=== PATIENT | male | born 1960 | race Caucasian/White ===

== ENCOUNTER → 2017-09-12 | Outpatient (CLI) | payer BC | LOC: M SLEEP HO 15:21 | DX: G47.30 Sleep apnea, unspecified (principal) | CPT/HCPCS: G0399 ==

== ENCOUNTER → 2019-02-05 | Outpatient (CLI) | payer BC ==
[~2019-02-05] MED LIST: AMLO10TA5 PO; COLA50CA3 PO; DIOV320T2 PO; PERC5TAB PO; SPIR25TA2 PO
--- NOTE | 2019-02-06 09:35 | REP ---
MRI RIGHT ANKLE WITHOUT CONTRAST: 02/05/2019. COMPARISON: Soft tissue ultrasound 01/24/2019, x-ray 01/24/2019, outside facility. TECHNIQUE: coronal fat suppressed T2 axial T1 and fat suppressed T2 along with sagittal T1-T2 STIR sequences to the ankle. FINDINGS: The mortise joint appeared symmetric and preserved with symmetric width. No talar dome osteochondral defect evident. No subchondral edema in the tibial plafond. There is some minor increased signal in the medial malleolus suggesting edema / bone bruise but no fracture line. Distal fibula likewise without visible fracture or avulsion on these images. There is some fluid posterior to the tibial plafond. There is no Achilles insertion spur. The Achilles tendon was grossly intact. Size and thickness normal with no intrinsic signal abnormality. There is a plantar calcaneal heal spur. No abnormal thickening of the plantar aponeurosis. The talonavicular and calcaneocuboid joints were normal. There is abnormal thickening and increased linear and curvilinear signal in the posterior tibial tendon just peripheral to the medial malleolus as it courses posterior and inferior to it. I see no definite avulsion. This would be a type 1 injury. There is a small amount of fluid adjacent posterior tibial tendon. The FDL and FHL tendon show normal fluid adjacent and signal abnormality. PB/PL tendons are grossly intact. AT, EDL, and EHL tendons intact. There is subcutaneous edema about the anterior medial aspect of the ankle and along the right posterolateral and posterior aspects of the ankle. Anterior tibiofibular ligament grossly intact. The anterior talofibular ligament shows some strain. The posterior talofibular ligament calcaneofibular ligament shows some so some strain. IMPRESSION: 1. Thickening and some increased signal within the body of the posterior tibialis tendon posterior and inferior to the medial malleolus suggesting a type 1 tear. Small amount of fluid adjacent to it in the FDL. 2. The FHL, PB/PL and anterior tendons along with the Achilles were intact. 3. Some anterior and posterior ligamentous strain about the ankle. 4. Mortise joint grossly intact. No fracture. Subtalar joints intact. 5. Plantar calcaneal heel spur. Electronically Signed by Tin Venegas MD 02/11/2019 02:20 P
== END ==
LOC: M RAD 13:52
PROVIDERS: ATTEND Podiatrist
DX: M76.821 Posterior tibial tendinitis, right leg (principal); M66.371 Spontaneous rupture of flexor tendons, right ankle and foot

== ENCOUNTER → 2019-04-25 | Outpatient (CLI) | payer BC ==
--- NOTE | 2019-04-30 14:42 | SLEEPHOME ---
DATE OF PROCEDURE: 04/25/2019 ORDERED BY: Karen Persaud NP Diagnostic home sleep testing was performed due to concern for the obstructive sleep apnea syndrome in this patient with snoring and nonrestorative sleep. For testing, a nocturnal T3 respiratory monitoring device was used. Continuous record was made of pulse, oxygen saturation, airflow, chest and abdominal strain and body position. 11 hours and 59 minutes of data were reviewed. There were 5 hours and 50 minutes marked as time in bed. During the interval marked time in bed, there were 241 respiratory events identified of 10 seconds in duration or greater for a respiratory event index of 41.2. The events were primarily obstructive. Baseline pulse rate 64, pulse rate ranged 50-90. Baseline saturation 94%. Saturations fell as low as 85%. Testing was performed in both the supine and nonsupine positions. IMPRESSION: Abnormal home sleep testing with repetitive respiratory events and oxygen desaturations to 85% with a respiratory event index of 41.2 is consistent with the obstructive sleep apnea syndrome. RECOMMENDATIONS: The patient should be encouraged to undergo formal sleep evaluation.
== END ==
LOC: M SLEEP HO 12:05
PROVIDERS: ATTEND Nurse Practitioner Adult Health
DX: G47.30 Sleep apnea, unspecified (principal)

== ENCOUNTER → 2019-05-09 | Outpatient (CLI) | payer BC ==
--- NOTE | 2019-05-14 11:42 | SLEEPCENT ---
DATE OF STUDY: 05/09/2019 ORDERED BY: Karen Persaud Nocturnal polysomnography was performed for the titration of pressure therapy in this patient with a clinical diagnosis of obstructive sleep apnea syndrome confirmed by home testing revealing respiratory event index of 41.2. For testing, a ResMed Quattro full face mask of large size was used, 4 cm of water pressure were applied to the circuit, and the lights were extinguished. 7 hours and 11 minutes of data were reviewed. There were 344 minutes of sleep identified. Sleep latency was short at 3.5 minutes. Rapid eye movement (REM) latency was short at 34 minutes. Sleep architecture was fairly good. There were four REM cycles appreciated. Wake between midnight and 1 a.m. resulted in reduced sleep efficiency of 80.8%. The patient's electrocardiogram showed a sinus rhythm with an average heart rate of 60 beats per minute. EEG showed normal waveforms for awake and sleep. Respiratory events were fully palliated with continuous positive airway pressure (CPAP) at a pressure of +10 with some activity in the limb EMG leads, but arousal index for limb events was 2.8. IMPRESSION: Obstructive sleep apnea syndrome (G47.33). RECOMMENDATION: Nightly use of pressure therapy 10 cm of water.
== END ==
LOC: M SLEEP 19:54
PROVIDERS: ATTEND Nurse Practitioner Adult Health
DX: G47.33 Obstructive sleep apnea (adult) (pediatric) (principal)

== ENCOUNTER → 2019-05-25 | Outpatient (CLI) | payer BC ==
[2019-05-25 11:05] LABS: HEMATOCRIT 45.9 % (42.0-52.0); HEMOGLOBIN 15.4 g/dl (13.5-17.5); MEAN CORPUSCULAR HEMOGLOBIN 29.3 pg (27.0-33.0); MEAN CORPUSCULAR HGB CONC 33.6 g/dl (32.0-36.5); MEAN CORPUSCULAR VOLUME 87.4 fl (80.0-96.0); PLATELET COUNT, AUTOMATED 267 10^3/uL (150-450); RED BLOOD COUNT 5.25 10^6/uL (4.30-6.10)
[2019-05-25 11:26] LABS: ALBUMIN 3.8 GM/DL (3.2-5.2); ALT/SGPT 29 U/L (12-78); BILIRUBIN,TOTAL 0.6 MG/DL (0.2-1.0); BLOOD UREA NITROGEN 20 MG/DL (7-18); CALCIUM LEVEL 9.2 MG/DL (8.5-10.1); CARBON DIOXIDE LEVEL 31 MEQ/L (21-32); CHLORIDE LEVEL 106 MEQ/L (98-107); GLOMERULAR FILTRATION RATE > 60.0 (>56); GLUCOSE, FASTING 99 MG/DL (70-100); POTASSIUM SERUM 4.3 MEQ/L (3.5-5.1); SODIUM LEVEL 141 MEQ/L (136-145); TOTAL PROTEIN 7.4 GM/DL (6.4-8.2)
--- NOTE | 2019-05-25 22:20 | ECGEPIP ---
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
== END ==
LOC: M LAB 10:40
PROVIDERS: ATTEND Podiatrist
DX: Z01.810 Encounter for preprocedural cardiovascular examination (principal); R00.1 Bradycardia, unspecified; M79.671 Pain in right foot; M66.371 Spontaneous rupture of flexor tendons, right ankle and foot

== ENCOUNTER 2019-06-14 09:16 | Day surgery (SDC) | payer BC ==
[~2019-06-14] VITALS: Ht 190.5 cm; Wt 114.6 kg
[~2019-06-14 09:16] MED LIST changes: +LIDOCAINE 1% MDV 20ML VIAL SQ PRN; +LR 1,000 ML IV ONE; +ceFAZolin SOD 2 GM in IV 1 EA IV ONE
[2019-06-14] MEDS ORDERED: MULTCAP PO (09:39)
[2019-06-14] MEDS ORDERED: LIDOCAINE 2% MDV 20 ML VIAL As Ordered ONE (09:59)
[2019-06-14] MEDS ORDERED: dexameTHASONE 4 MG/ML 1ML VIAL (J1100) As Ordered ONE ×2 (09:59→12:11)
[2019-06-14] MEDS ORDERED: BUPIVACAINE HCL 0.5% 30 ML VIAL As Ordered ONE (09:59)
[2019-06-14] MEDS ORDERED: BACITRACIN PWD 50,000 UNITS VIAL As Ordered ONE (10:00)
[2019-06-14] MEDS ORDERED: NEOSPORIN GU IRRIG 20 ML VIAL As Ordered ONE (10:00)
--- NOTE | 2019-06-14 10:37 | REP ---
Three views right foot: 06/14/2019. Indication: Right foot pain. Ruptured tendon. Comparison: 01/24/2019. Findings: Compared to the prior study, no significant changes are present. There is no acute fracture. 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 Anterior calcaneal spur is again noted. No lytic or blastic lesions are present. Impression: No acute osseous injuries of the right foot. Electronically Signed by Leon Harkins DO 06/14/2019 10:28 A
[2019-06-14] MEDS ORDERED: PROPOFOL 200 MG/20 ML VIAL As Ordered ONE ×2 (10:43→11:49)
[2019-06-14] MEDS ORDERED: ONDANSETRON 4MG/2ML VIAL (J2405) As Ordered ONE (10:43)
[2019-06-14] MEDS ORDERED: LIDOCAINE 2% INJ 100 MG/5 ML SDV (FOR ANES.) As Ordered ONE (10:43)
[2019-06-14] MEDS ORDERED: fentaNYL 100 MCG/2 ML INJECTION (J3010) As Ordered ONE ×3 (10:43→16:48)
[2019-06-14] MEDS ORDERED: MIDAZOLAM INJ 2 MG/2 ML VIAL (J2250) As Ordered ONE (10:44)
[2019-06-14] MEDS ORDERED: ROCURONIUM BROMIDE 50 MG/5 ML VIAL As Ordered ONE (11:53)
[2019-06-14] MEDS ORDERED: ACETAMINOPHEN 1000MG 100ML IV BTL (OFIRMEV) (J0131 PER 10MG) As Ordered ONE (13:30)
[2019-06-14] MEDS ORDERED: HYDROmorphone HCL 2 MG/ML 1ML VIAL (J1170) As Ordered ONE (13:37)
[2019-06-14] MEDS ORDERED: ePHEDrine SULFATE 25 MG/5 ML(5MG/ML) SYRINGE As Ordered ONE (15:20)
[2019-06-14] MEDS ORDERED: SUGAMMADEX SODIUM 500 MG/5 ML VIAL (BRIDION) As Ordered ONE (15:35)
[2019-06-14] MEDS ORDERED: KETOROLAC 60 MG/2 ML VIAL (J1885) As Ordered ONE (15:52)
[2019-06-14] MEDS ORDERED: oxyCODONE 5MG TAB As Ordered ONE (16:48)
[2019-06-14] MEDS: fentaNYL 100 MCG/2 ML INJECTION (J3010) IV PRN ×4 (16:50→17:13)
[2019-06-14] MEDS: oxyCODONE 5MG TAB PO PRN ×2 (16:54→17:41)
[2019-06-14] MEDS ORDERED: LR 1,000 ML IV SCH (17:00)
[2019-06-14] MEDS ORDERED: ONDANSETRON 4MG/2ML VIAL (J2405) IV PRN (17:00)
--- NOTE | 2019-06-14 17:49 | REP ---
HISTORY: Postop AP and lateral views were obtained. There has been previous ORIF of the os calcis. The alignment is near anatomical. There is a plantar calcaneal heel spur. There are degenerative changes seen throughout the foot particularly the first metatarsophalangeal joint where there is asymmetric joint space narrowing and marginal osteophytosis. IMPRESSION: Postoperative changes and other findings as described above. Electronically Signed by Paco Lopez DO 06/14/2019 06:21 P
--- NOTE | 2019-06-14 17:50 | REP ---
HISTORY: Postoperative evaluation. There has been previous ORIF of the os calcis. The os calcis is internally fixed by a single fixation plate and five affixing screws. The alignment is near anatomical. There is a plantar calcaneal heel spur. Electronically Signed by Paco Lopez DO 06/14/2019 06:21 P
[2019-06-14] MEDS ORDERED: METOCLOPRAMIDE INJ 10MG/2ML VIAL (J2765) As Ordered ONE (19:28)
[2019-06-14] MEDS ORDERED: METOCLOPRAMIDE INJ 10MG/2ML VIAL (J2765) IV ONE (19:45)
[2019-06-14 20:55] VITALS: BP 152/85
--- NOTE | 2019-06-20 09:39 | RO ---
DATE OF PROCEDURE: 06/14/2019 PREOPERATIVE DIAGNOSIS: Posterior tibial tendon dysfunction, right foot. POSTOPERATIVE DIAGNOSIS: Posterior tibial tendon dysfunction, right foot. PROCEDURES PERFORMED: 1. Debridement posterior tibial tendon right foot. 2. Flexor digitorum longus tendon transfer into the navicular with a 5.5 x 15 mm BioComposite screw. 3. Medial calcaneal osteotomy with plate and screw fixation. SURGEON: Theo Mendez DPM PRINT SHOP MANAGER: None. ANESTHESIA: General. HEMOSTASIS: Thigh pneumatic tourniquet at 200 mmHg for 100 minutes. First inflation with a 40 minute deflation time, and 66 minutes second inflation. HARDWARE UTILIZED: Bio-Tenodesis screw 5.5 x 15, a 10 mm medial calcaneal displacement plate with cancellus screw fixation, three 30 mm screws, one 28 mm screw and one 24 mm screw. COMPLICATIONS: Loss of one 5.5 x 15 mm screw. DESCRIPTION OF OPERATION: On 06/14/2019 this 58-year-old white male was taken from his hospital room to the operating room, placed on the operating room table in supine position. Following the induction of IV sedation, local and regional anesthesia, the right lower extremity was prepped and draped in the usual aseptic manner. Attention was directed to the medial surface of the patient's right foot after the thigh tourniquet was inflated and an incision was made starting 4 cm superior o the tip of the medial malleolus dorsally to inferior to the navicular. Dissection was carried down to the posterior tibial tendon sheath, and the posterior tibial tendon sheath was opened in the mid substance, approximately 4 cm to its insertion point. There was a rupture of the posterior tibial tendon. This area was swollen, measured approximately 4 cm in length, with considerable degeneration of the tendon itself, which did not allow for repair, so this area was debrided with pressure pull on the tendon, however there was some resistance from the muscle. Therefore, the muscle appeared viable. Dissection was then carried down and the following procedure was performed: FLEXOR DIGITORUM LONGUS TENDON TRANSFER INTO THE NAVICULAR WITH A 5.5 X 15 MM SCREW. Dissection was carried through the tendon sheath and the flexor digitorum long us tendon was identified. It was traced inferior to the plantar surface of the foot. Bleeders as encountered were electrocoagulated or tied with #3-0 Vicryl. At the Master Knot of De, the flexor digitorum longus tendon was cut and delivered into the wound. The tendon was then dissected dorsally posterior to the medial malleolus. A Pulvertaft Weave was performed through the posterior tibial tendon so the flexor digitorum longus tendon was weaved through the posterior tibial tendon. Attention directed to the navicular, utilizing C-arm, Guidewire was placed into the navicular and good placement was noted of the screw. A 5.5 channel was then created into the navicular, approximately 18 mm deep. The 5.5 x 15 mm screw was placed into the hole, however the screw popped off the bulk truck driver and attempt was made to find the screw in the foot itself and around the operative area, unfortunately, the screw could not be found. This is an absorbable screw and after approximately 10 minutes looking for the screw it was felt that any dissection or further dissection to find the screw would create more harm and leaving the screw in the foot if it was indeed in the foot. The screw is radiopaque and therefore could not be seen on C-arm imagery. Another screw was then utilized and utilizing the standard technique, the flexor digitorum longus tendon was measured under good tension and then screwed into the navicular with the foot held in a somewhat inverted position. Strong purchase was noted. This was oversewn into the socket and was sutured at the Pulvertaft Weave as well as at the distal aspect at the stump of the posterior tibial tendon with #2 FiberWire. The tourniquet was deflated. All bleeders as additionally seen were electrocoagulated. Utilizing Gelfoam at the Master Knot of De, this was placed as this is a frequent area of bleeding. TLS drain was placed in the foot and sewn in place with #3-0 silk. The laciniate ligament was repaired with #2 Monocryl. The tendon sheath was repaired with #4-0 Monocryl. The subcutaneous tissue were coapted and maintained with #4-0 Monocryl and the skin was coapted and maintained with #3-0 nylon in a simple interrupted type fashion. After 20 minutes of deflation of the tourniquet, the patient was placed in the left lateral decubitus position, giving access to the lateral side of the foot, and an incision was made starting 1 cm posterior to the fibula and angulated at approximately a 45 degree angle from the heel. Dissection was carried down. The sural nerve was identified and retracted in a distal direction. A periosteal incision was then made. Two [place] tacks were then utilized to check positioning of the osteotomy site which was noted to be good. The osteotomy was then created and the calcaneus was transposed 10 mm medially and the knee was placed, calcaneus was pulled in an inferior direction trying to get 2 mm of inferior displacement to increase the calcaneal pitch angle. This was then fixated with a 10 mm Arthrex plate with cancellus screws utilizing three 30s and one 28 mm in length screws and a 24 screw was utilized to cause compression across the fragment site. The periosteum was then repaired with #2-0 Monocryl. A TLS drain was then placed and subcutaneous tissue were coapted with #4-0 Monocryl and the skin was coapted with #2-0 nylon. A Zavaleta compressive dressing with a posterior splint was then placed on the patient's foot. The tourniquet was released. Drains were functioning satisfactorily. The patient, having apparently tolerated the surgical procedure well, was then taken from the OR to the recovery room for further monitoring by the anesthesia department. The patient will start on Lovenox injections 24 hours after surgery. Postoperative instruction will be given upon discharge.
== END 2019-06-14 21:10 | disposition home or self-care (01) ==
LOC: M SDC 09:16
PROVIDERS: ATTEND Podiatrist
DX: M66.371 Spontaneous rupture of flexor tendons, right ankle and foot (principal); M76.821 Posterior tibial tendinitis, right leg; M79.671 Pain in right foot; I10 Essential (primary) hypertension; R60.0 Localized edema; M54.9 Dorsalgia, unspecified; Z79.899 Other long term (current) drug therapy; Z79.891 Long term (current) use of opiate analgesic
CPT/HCPCS: 27691; 28300; 73620; 73630; 73650; 88304; 97116; C1713; J0131; J0690; J1100; J1170; J1885; J2250; J2405; J2765; J3010

== ENCOUNTER → 2019-08-05 | Outpatient (CLI) | payer BC ==
[~2019-08-05] MED LIST changes: -LIDOCAINE 1% MDV 20ML VIAL SQ PRN; -LR 1,000 ML IV ONE; +MULTCAP PO; -ceFAZolin SOD 2 GM in IV 1 EA IV ONE
--- NOTE | 2019-08-05 11:51 | REP ---
Clinical: Right lower extremity pain and swelling . Technique: Bermeo scale and color Doppler evaluation using linear high frequency transducer. Findings: Ultrasound examination of the right lower extremity deep venous structures from the common femoral vein to the popliteal vein demonstrates normal compressibility flow and wave patterns in response to respiration and augmentation. There is no evidence for deep venous thrombosis. Impression: No evidence for deep venous thrombosis. Electronically Signed by Steven Donald MD 08/05/2019 11:43 A
== END ==
LOC: M RAD 11:03
PROVIDERS: ATTEND Podiatrist
DX: Z86.718 Personal history of other venous thrombosis and embolism (principal)

== ENCOUNTER → 2019-09-10 | Outpatient (CLI) | payer BC ==
--- NOTE | 2019-09-10 20:21 | REP ---
Clinical: Trauma. Left-sided pain Technique: Frontal view of the chest with four views of the left hemithorax. Findings: Frontal view of the chest demonstrates no acute cardiopulmonary process. Multiple views of the left hemithorax demonstrates no obvious acute rib fracture or pathology. Impression: No obvious acute left rib fracture. Electronically Signed by Steven Donald MD 09/10/2019 08:13 P
== END ==
LOC: M WUC 15:16
PROVIDERS: ATTEND Physician Assistant
DX: S20.212A Contusion of left front wall of thorax, initial encounter (principal); X58.XXXA Exposure to other specified factors, initial encounter; Y92.9 Unspecified place or not applicable

== ENCOUNTER → 2020-05-08 | Outpatient (CLI) | payer SELFPAY ==
[~2020-05-08] MED LIST changes: -AMLO10TA5 PO; +AMLO1TAB25 PO
== END ==
LOC: M LABSMTC 14:02
PROVIDERS: ATTEND Pediatrics
DX: Z20.828 Contact with and (suspected) exposure to other viral communicable diseases (principal)

== ENCOUNTER → 2020-07-12 | Outpatient (CLI) | payer SELFPAY ==
[~2020-07-12] MED LIST changes: +SPIR-10 PO; +VALS320T3 PO; +VITMTA PO
== END ==
LOC: M LABSMTC 10:05
PROVIDERS: ATTEND Anesthesiology
DX: Z01.812 Encounter for preprocedural laboratory examination (principal); Z20.822 Contact with and (suspected) exposure to COVID-19

== ENCOUNTER → 2020-07-12 | Outpatient (CLI) | payer BC ==
[2020-07-12 10:46] LABS: BASO # 0.1 10^3/uL (0.0-0.2); BASO % 0.6 % (0.0-1.0); EOS # 0.2 10^3/uL (0.0-0.5); EOS % 1.9 % (0.0-3.0); HEMATOCRIT 46.7 % (42.0-52.0); HEMOGLOBIN 15.4 g/dl (13.5-17.5); LYMPH # 1.7 10^3/uL (1.5-5.0); LYMPH % 20.9 % (24.0-44.0); MEAN CORPUSCULAR HEMOGLOBIN 29.2 pg (27.0-33.0); MEAN CORPUSCULAR VOLUME 88.4 fl (80.0-96.0); MONO # 0.7 10^3/uL (0.0-0.8); MONO % 8.4 % (0.0-5.0); NEUTROPHILS # 5.4 10^3/uL (1.5-8.5); NEUTROPHILS % 67.8 % (36.0-66.0); PLATELET COUNT, AUTOMATED 270 10^3/uL (150-450); RED BLOOD COUNT 5.28 10^6/uL (4.30-6.10)
[2020-07-12 11:49] LABS: BLOOD UREA NITROGEN 25 MG/DL (7-18); CALCIUM LEVEL 9.8 MG/DL (8.8-10.2); CARBON DIOXIDE LEVEL 30 MEQ/L (21-32); CHLORIDE LEVEL 105 MEQ/L (98-107); CREATININE FOR GFR 1.11 MG/DL (0.70-1.30); GLOMERULAR FILTRATION RATE > 60.0 (>49); GLUCOSE, FASTING 88 MG/DL (70-100); POTASSIUM SERUM 4.4 MEQ/L (3.5-5.1); SODIUM LEVEL 140 MEQ/L (136-145)
--- NOTE | 2020-07-12 13:07 | ECGEPIP ---
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
== END ==
LOC: M LAB 10:26
PROVIDERS: ATTEND Podiatrist
DX: Z01.818 Encounter for other preprocedural examination (principal); R00.1 Bradycardia, unspecified; R94.31 Abnormal electrocardiogram [ECG] [EKG]; M20.21 Hallux rigidus, right foot; G57.61 Lesion of plantar nerve, right lower limb; M79.671 Pain in right foot

== ENCOUNTER 2020-07-17 06:15 | Day surgery (SDC) | payer BC ==
[~2020-07-17] VITALS: Ht 190.5 cm; Wt 115.7 kg
[~2020-07-17 06:15] MED LIST changes: +LR 1,000 ML IV ONE
--- OUTSIDE RECORDS SUMMARY | 2020-07-17 06:20 | CCD | Continuity of Care Document ---
Author Author Lazaro MARTÍNEZ [place] Organization Unknown Address [address] [place] [address] [place] [address] Phone [phone] Care Team Providers Care Transformer Mechanic Name Role Phone Estevan Jimenes MD [facility] [phone] No PCP [facility] Unavailable Problems Description No Information Available Social History Type Date Description Comments Sex Unknown ETOH Use Occasionally consumes alcohol Tobacco Use Start: Unknown Patient has never smoked Smoking Status Reviewed: 04/22/20 Patient has never smoked Allergies, Adverse Reactions, Alerts Description No Known Drug Allergies Medications Active Medications SIG Qnty Indications Ordering Provide r Date Spironolactone 25mg Tablets take one (1) daily 90tabs I10 Tyrone Mackey JR., M.D. Viagra 100mg Tablets u se as directed 14tabs F52.21 Tyrone Mackey JR., M.D. 07/18/2013 Diovan HCT 320-25mg Tablets take one (1) tab daily in in the morning 90tabs Tyrone Mcwilliams M.D. 07/04/2013 Immunizations CPT Code Status Date Vaccine Lot # [id number] Given 05/05/2015 Influenza Virus Split 3 Yrs And Above For Intramuscular Use Q2037 Given 05/20/2014 Influenza Virus Split 3 Yrs And Above For Intramuscular Use [id number] Given 05/20/2014 Influenza Virus Split 3 Yrs And Above For Intramuscular Use [id number] Vital Signs Date Vital Result Comment 04/22/2020 12:26pm BP Systolic 169 mmHg BP Diastolic 112 mmHg Heart Rate 91 /min Respiratory Rate 16 /min O2 % BldC Oximetry 99 % Body Temperature 98.3 F Weight 245.00 lb Height 75 inches 6'3" BMI (Body Mass Index) 30.6 kg/m2 Pain Level 0 09/10/2019 2:54pm BP Systolic 168 mmHg BP Diastolic 119 mmHg Heart Rate 70 /min Respiratory Rate 16 /min O2 % BldC Oximetry 97 % Body Temperature 98.0 F Weight 240.00 lb Height 75 inches 6'3" BMI (Body Mass Index) 30.0 kg/m2 Pain Level 4 Results Description No Information Available Procedures Description No Information Available Medical Devices Description No Information Available Encounters Type Date Location Provider Dx Diagnosis Office Visit 04/22/2020 1:10p Main Office DAVONTE Kenney D17 .1 Benign lipomatous neoplasm of skin, subcu of trunk I10 Essential (primary) hyperten felipe Assessments Date Code Description Provider 04/22/2020 D17.1 Benign lipomatous ne oplasm of skin and subcutaneous tissue of trunk DAVONTE Kenney 04/22/2020 I10 Essential (primary) hypertension DAVONTE Kenney Plan of Treatment No Information Available Functional Status Description No Information Available Mental Status Description No Information Available Referrals Description No Information Available
--- OUTSIDE RECORDS SUMMARY | 2020-07-17 06:20 | CCD ---
Author Author [facility] Organization [facility] Address Unknown Phone Unavailable Care Team Providers Care Functional Skills Tutor Name Role Phone LEELHARMAN PAVAN PA Unavailable Unavailable MCELHERAN, PAVAN PA Unavailable Unavailable MCELHERAN, PAVAN PA Unavailable Unavailable MCELHERAN, PAVAN PA Unavailable Unavailable MCELHERAN, PAVAN PA Unavailable Unavailable MCELHERAN, PAVAN PA Unavailable Unavailable MCELHERAN, PAVAN PA Unavailable Unavailable MCELHERAN, PAVAN PA Unavailable Unavailable MCELHERAN, PAVAN PA Unavailable Unavailable MCELHERAN, PAVAN PA Unavailable Unavailable MCELHERAN, PAVAN PA Unavailable Unavailable MCELHERAN, PAVAN PA Unavailable Unavailable MCELHERAN, PAVAN PA Unavailable Unavailable MCELHERAN, PAVAN PA Unavailable Unavailable MCELHERAN, PAVAN PA Unavailable Unavailable MCELHERAN, PAVAN PA Unavailable Unavailable MCELHERAN, PAVAN PA Unavailable Unavailable MCELHERAN, PAVAN PA Unavailable Unavailable MCELHERAN, PAVAN PA Unavailable Unavailable MCELAN, PAVAN PA Unavailable Unavailable MCELAN, PAVAN PA Unavailable Unavailable MCELAN, PAVAN PA Unavailable Unavailable MCELHERAN, PAVAN PA Unavailable Unavailable MCELHERAN, PAVAN PA Unavailable Unavailable MCELHERAN, PAVAN PA Unavailable Unavailable MCELHERAN, PAVAN PA Unavailable Unavailable MCELHERAN, PAVAN PA Unavailable Unavailable MCELAN, PAVAN PA Unavailable Unavailable RICK VÁZQUEZ CHIEF DIETITIAN Unavailable Unavailable RICK VÁZQUEZ CHIEF DIETITIAN Unavailable Unavailable RICK VÁZQUEZ CHIEF DIETITIAN Unavailable Unavailable VÁZQUEZ, RICK YUDELKA CHIEF DIETITIAN Unavailable Unavailable VÁZQUEZ, RICK YUDELKA CHIEF DIETITIAN Unavailable Unavailable VÁZQUEZ, RICK YUDELKA CHIEF DIETITIAN Unavailable Unavailable VÁZQUEZ, RICK YUDELKA CHIEF DIETITIAN Unavailable Unavailable VÁZQUEZ, RICK YUDELKA CHIEF DIETITIAN Unavailable Unavailable VÁZQUEZ, RICK YUDELKA CHIEF DIETITIAN Unavailable Unavailable VÁZQUEZ, RCIK YUDELKA CHIEF DIETITIAN Unavailable Unavailable VÁZQUEZ, RICK YUDELKA CHIEF DIETITIAN Unavailable Unavailable VÁZQUEZ, RICK YUDELKA CHIEF DIETITIAN Unavailable Unavailable VÁZQUEZ, RICK YUDELKA CHIEF DIETITIAN Unavailable Unavailable VÁZQUEZ, RICK YUDELKA CHIEF DIETITIAN Unavailable Unavailable VÁZQUEZ, RICK YUDELKA CHIEF DIETITIAN Unavailable Unavailable VÁZQUEZ, RICK YUDELKA CHIEF DIETITIAN Unavailable Unavailable VÁZQUEZ, RICK YUDELKA CHIEF DIETITIAN Unavailable Unavailable VÁZQUEZ, RICK YUDELKA CHIEF DIETITIAN Unavailable Unavailable VÁZQUEZ, RICK YUDELKA CHIEF DIETITIAN Unavailable Unavailable VÁZQUEZ, RICK YUDELKA CHIEF DIETITIAN Unavailable Unavailable VÁZQUEZ, RICK YUDELKA CHIEF DIETITIAN Unavailable Unavailable VÁZQUEZ, RICK YUDELKA CHIEF DIETITIAN Unavailable Unavailable VÁZQUEZ, RICK YUDELKA CHIEF DIETITIAN Unavailable Unavailable VÁZQUEZ, RICK YUDELKA CHIEF DIETITIAN Unavailable Unavailable VÁZQUEZ, RICK YUDELKA CHIEF DIETITIAN Unavailable Unavailable VÁZQUEZ, RICK YUDELKA CHIEF DIETITIAN Unavailable Unavailable VÁZQUEZ, RICK YUDELKA CHIEF DIETITIAN Unavailable Unavailable VÁZQUEZ, RICK YUDELKA CHIEF DIETITIAN Unavailable Unavailable VÁZQUEZ, RICK YUDELKA CHIEF DIETITIAN Unavailable Unavailable VÁZQUEZ, RICK YUDELKA CHIEF DIETITIAN Unavailable Unavailable VÁZQUEZ, RICK YUDELKA CHIEF DIETITIAN Unavailable Unavailable VÁZQUEZ, RICK YUDELKA CHIEF DIETITIAN Unavailable Unavailable VÁZQUEZ, RICK YUDELKA CHIEF DIETITIAN Unavailable Unavailable VÁZQUEZ, RICK YUDELKA CHIEF DIETITIAN Unavailable Unavailable VÁZQUEZ, RICK YUDELKA CHIEF DIETITIAN Unavailable Unavailable VÁZQUEZ, RICK YUDELKA CHIEF DIETITIAN Unavailable Unavailable VÁZQUEZ, RICK YUDELKA CHIEF DIETITIAN Unavailable Unavailable VÁZQUEZ, RICK YUDELKA CHIEF DIETITIAN Unavailable Unavailable VÁZQUEZ, RICK YUDELKA CHIEF DIETITIAN Unavailable Unavailable VÁZQUEZ, RICK YUDELKA CHIEF DIETITIAN Unavailable Unavailable VÁZQUEZ, RICK YUDELKA CHIEF DIETITIAN Unavailable Unavailable VÁZQUEZ, RICK YUDELKA CHIEF DIETITIAN Unavailable Unavailable VÁZQUEZ, RICK YUDELKA CHIEF DIETITIAN Unavailable Unavailable VÁZQUEZ, RICK YUDELKA CHIEF DIETITIAN Unavailable Unavailable VÁZQUEZ, RICK YUDELAK CHIEF DIETITIAN Unavailable Unavailable VÁZQUEZ, RICK YUDELKA CHIEF DIETITIAN Unavailable Unavailable VÁZQUEZ, RICK YUDELKA CHIEF DIETITIAN Unavailable Unavailable VÁZQUEZ, RICK YUDELKA CHIEF DIETITIAN Unavailable Unavailable VÁZQUEZ, RICK YUDELKA CHIEF DIETITIAN Unavailable Unavailable VÁZQUEZ, RICK YUDELKA CHIEF DIETITIAN Unavailable Unavailable LETTIERE, A PAVAN PA Unavailable Unavailable LETTIERE, A PAVAN PA Unavailable Unavailable LETTIERE, A PAVAN PA Unavailable Unavailable LETTIERE, A PAVAN PA Unavailable Unavailable LETTIERE, A PAVAN PA Unavailable Unavailable LETTIERE, A PAVAN PA Unavailable Unavailable LETTIERE, A PAVAN PA Unavailable Unavailable LETTIERE, A PAVAN PA Unavailable Unavailable LETTIERE, A PAVAN PA Unavailable Unavailable LETTIERE, A PAVAN PA Unavailable Unavailable LETTIERE, A PAVAN PA Unavailable Unavailable LETTIERE, A PAVAN PA Unavailable Unavailable LETTIERE, A PAVAN PA Unavailable Unavailable LETTIERE, A PAVAN PA Unavailable Unavailable LETTIERE, A PAVAN PA Unavailable Unavailable LETTIERE, A PAVAN PA Unavailable Unavailable LETTIERE, A PAVAN PA Unavailable Unavailable LETTIERE, A PAVAN PA Unavailable Unavailable LETTIERE, A PAVAN PA Unavailable Unavailable LETTIERE, A PAVAN PA Unavailable Unavailable LETTIERE, A PAVAN PA Unavailable Unavailable LETTIERE, A PAVAN PA Unavailable Unavailable LETTIERE, A PAVAN PA Unavailable Unavailable LETTIERE, A PAVAN PA Unavailable Unavailable LETTIERE, A PAVAN PA Unavailable Unavailable LETTIERE, A PAVAN PA Unavailable Unavailable LETTIERE, A PAVAN PA Unavailable Unavailable LETTIERE, A PAVAN PA Unavailable Unavailable LETTIERE, A PAVAN PA Unavailable Unavailable Re-disclosure Warning The records that you are about to access may contain information from federally-assisted alcohol or drug abuse programs. If such information is present, then the following federally mandated warning applies: This information has been disclosed to you from records protected by federal confidentiality rules (42 CFR part 2). The federal rules prohibit you from making any further disclosure of this information unless further disclosure is expressly permitted by the written consent of the person to whom it pertains or as otherwise permitted by 42 CFR part 2. A general authorization for the release of medical or other information is NOT sufficient for this purpose. The Federal rules restrict any use of the information to criminally investigate or prosecute any alcohol or drug abuse patient.The records that you are about to access may contain highly sensitive health information, the redisclosure of which is protected by Article 27-F of the [facility] Public Health law. If you continue you may have access to information: Regarding HIV / AIDS; Provided by facilities licensed or operated by the [facility] Office of Mental Health; or Provided by the [facility] Office for People With Developmental Disabilities. If such information is present, then the following [facility] mandated warning applies: This information has been disclosed to you from confidential records which are protected by state law. State law prohibits you from making any further disclosure of this information without the specific written consent of the person to whom it pertains, or as otherwise permitted by law. Any unauthorized further disclosure in violation of state law may result in a fine or alf sentence or both. A general authorization for the release of medical or other information is NOT sufficient authorization for further disc losure. Family History Family Member Name Family Member Gender Family Member Status Date o f Status Description Data Source(s) Unknown Unknown Problem [facility] ([facility]) brother Unknown Male Problem [facility] ([facility]) Encounters Encounter Providers Location Date Indications Data Source(s ) Outpatient Attender: PAVAN Vázquez Prim daam 04/22/2020 01:10:00 PM EDT [facility] ([facility]) Outpatient Attender: PAVAN Vázquez Prim adam 09/10/2019 02:45:00 PM EDT [facility] ([facility]) Outpatient Referrer: PAVAN ARAUZ 08/19/2019 10:08 :00 AM EST [facility] Outpatient Referrer: PAVAN ARAUZ 07/04/2019 11:37 :00 AM EST [facility] Outpatient Attender: YUDELKA VÁZQUEZ CHIEF DIETITIAN [facility] 11:08:00 AM EST - 06/06/2019 11:09:00 AM [facility] Patient discharged. Immunizations Vaccine Date Status Description Data Source(s) INFLUENZA VIRUS VACCINE QUADRIVALENT 2019- (6 MOS AN D UP) 04/22/2020 12:00:00 AM EDT completed [facility] Medications Medication Brand Name Start Date Product Form Dose Route Admi nistrative Instructions Pharmacy Instructions Status Indications Reaction Description Data Source(s) 0.025 % 07/13/2020 12:00:00 AM EST cream 30 APPLY TOPICALLY TO RASH EVERY 8 HOURS APPLY TOPICALLY TO RASH EVERY 8 HOURS SOLD: 07/15/2020 [facility] 5-325 mg 07/08/2020 12:00:00 AM EST tablet 20 TAKE 1-2 TABLETS BY MOUTH EVERY 6 HOURS NEEDED FOR POST-OP PAIN MAXIMUM DAILY DOSE = 6 TAKE 1-2 TABLETS BY MOUTH EVERY 6 HOURS NEEDED FOR POST-OP PAIN MAXIMUM DAILY DOSE = 6 SOLD: 07/10/2020 [facility] 25 mg 04/22/2020 12:00:00 AM EDT tablet 90 TAKE ONE TABLET BY MOUTH EVERY DAY TAKE ONE TABLET BY MOUTH EVERY DAY SOLD: 04/22/2020 [facility] 320-25 mg 04/22/2020 12:00:00 AM EDT tablet 90 TAKE ONE TABLET BY MOUTH EVERY DAY IN THE MORNING TAKE ONE TABLET BY MOUTH EVERY DAY IN THE MORNING SOLD : 04/22/2020 [facility] 100 mg 04/22/2020 12:00:00 AM EDT tablet 6 USE A S DIRECTED USE DIRECTED SOLD: 04/22/2020 [facility] 15 mg 01/27/2020 12:00:00 AM EDT tablet 30 TAKE ONE TABLET BY MOUTH EVERY DAY WITH DINNER TAKE ONE TABLET BY MOUTH EVERY DAY WITH DINNER SOLD: 020 [facility] 5-325 mg 11/13/2019 12:00:00 AM EDT tablet 90 TAKE ONE TABLET BY MOUTH THREE TIMES A DAY NEEDED MAXIMUM DAILY DOSE = 3 TABLETS TAKE ONE TABLET BY MOUTH THREE TIMES A DAY NEEDED MAXIMUM DAILY DOSE = 3 TABLETS SOLD: 11/16/2019 [facility] 5-325 mg 09/24/2019 12:00:00 AM EDT tablet 120 TAKE ONE TABLET BY MOUTH EVERY 6 HOURS MAXIMUM DAILY DOSE = 4 TABLETS TAKE ONE TABLET BY MOUTH EVERY 6 HOURS MAXIMUM DAILY DOSE = 4 TABLETS SOLD: 09/26/2019 [facility] 320-25 mg 08/27/2019 12:00:00 AM EST tablet 90 TAKE ONE TABLET BY MOUTH EVERY DAY TAKE ONE TABLET BY MOUTH EVERY DAY SOLD: 12/31/2019 [facility] 320-25 mg 08/27/2019 12:00:00 AM EST tablet 90 TAKE ONE TABLET BY MOUTH EVERY DAY TAKE ONE TABLET BY MOUTH EVERY DAY SOLD: 09/03/2019 [facility] 5-325 mg 08/21/2019 12:00:00 AM EST tablet 120 TAKE ONE TABLET BY MOUTH EVERY 6 HOURS NEEDED MAXIMUM DAILY DOSE = 4 TAKE ONE TABLET BY MOUTH EVERY 6 HOURS NEEDED MAXIMUM DAILY DOSE = 4 SOLD: 08/27/2019 [facility] 10 mg 08/15/2019 12:00:00 AM EST tablet 90 TAKE ONE TABLET BY MOUTH EVERY DAY TAKE ONE TABLET BY MOUTH EVERY DAY SOLD: 08/27/2019 [facility] 25 mg 08/15/2019 12:00:00 AM EST tablet 90 TAKE ONE TABLET BY MOUTH EVERY DAY TAKE ONE TABLET BY MOUTH EVERY DAY SOLD: 12/22/2019 [facility] 25 mg 08/15/2019 12:00:00 AM EST tablet 90 TAKE ONE TABLET BY MOUTH EVERY DAY TAKE ONE TABLET BY MOUTH EVERY DAY SOLD: 08/27/2019 [facility] 8 % 08/01/2019 12:00:00 AM EST solution 6 APPL Y TO NAIL ONCE DAILY APPLY TO NAIL ONCE DAILY SOLD: 12/20/2019 [facility] 8 % 08/01/2019 12:00:00 AM EST solution 6 APPL Y TO NAIL ONCE DAILY APPLY TO NAIL ONCE DAILY SOLD: 08/04/2019 [facility] 5-325 mg 07/23/2019 12:00:00 AM EST tablet 120 TAKE ONE TABLET BY MOUTH EVERY 6 HOURS MAXIMUM DAILY DOSE = 4 TAKE ONE TABLET BY MOUTH EVERY 6 HOURS MAXIMUM DAILY DOSE = 4 SOLD: 07/26/2019 [facility] 5-325 mg 06/24/2019 12:00:00 AM EST tablet 120 TAKE ONE TABLET BY MOUTH EVERY 6 HOURS NEEDED MAXIMUM DAILY DOSE = 4 TAKE ONE TABLET BY MOUTH EVERY 6 HOURS NEEDED MAXIMUM DAILY DOSE = 4 SOLD: 06/28/2019 [facility] 5-325 mg 06/14/2019 12:00:00 AM EST tablet 20 TAKE 1 OR 2 TABLETS BY MOUTH EVERY 6 HOURS NEEDED FOR SEVERE PAIN MAXIMUM DAILY DOSE = 8 TAKE 1 OR 2 TABLETS BY MOUTH EVERY 6 HOURS NEEDED FOR SEVERE PAIN MAXIMUM DAILY DOSE = 8 SOLD: 06/14/2019 [facility] 40 mg/0.4 mL 05/28/2019 12:00:00 AM EST syringe 4 INJECT SUBCUTANEOUSLY DAILY POST OPERATIVELY FOR 10 DAYS START 6 HOURS AFTER SURGERY INJECT SUBCUTANEOUSLY DAILY POST OPERATIVELY FOR 10 DAYS START 6 HOURS AFTER SURGERY SOLD: 06/14/2019 [facility] 40 % 05/27/2019 12:00:00 AM EST cream 28 APPLY TO NAIL TWO TIMES A DAY APPLY TO NAIL TWO TIMES A DAY SOLD: 06/03/2019 [facility] 5-325 mg 05/20/2019 12:00:00 AM EST tablet 120 TAKE ONE TABLET BY MOUTH EVERY 6 HOURS NEEDED MAXIMUM DAILY DOSE = 4 TAKE ONE TABLET BY MOUTH EVERY 6 HOURS NEEDED MAXIMUM DAILY DOSE = 4 SOLD: 05/21/2019 [facility] 25 mg 05/20/2019 12:00:00 AM EST tablet 90 TAKE 1 TABLET BY MOUTH ONCE A DAY TAKE 1 TABLET BY MOUTH ONCE A DAY SOLD: 05/21/2019 [facility] 320-25 mg 04/30/2019 12:00:00 AM EST tablet 30 TAKE ONE TABLET BY MOUTH EVERY DAY TAKE ONE TABLET BY MOUTH EVERY DAY SOLD: 08/04/2019 [facility] 320-25 mg 04/30/2019 12:00:00 AM EST tablet 30 TAKE ONE TABLET BY MOUTH EVERY DAY TAKE ONE TABLET BY MOUTH EVERY DAY SOLD: 07/08/2019 [facility] 320-25 mg 04/30/2019 12:00:00 AM EST tablet 30 TAKE ONE TABLET BY MOUTH EVERY DAY TAKE ONE TABLET BY MOUTH EVERY DAY SOLD: 06/07/2019 [facility] 1 % 01/24/2019 12:00:00 AM EDT gel 100 APPLY TO FOOT 2-4 GRAMS EVERY 8 HOURS NEEDED FOR PAIN APPLY TO FOOT 2-4 GRAMS EVERY 8 HOURS NEEDED FOR PA IN SOLD: 05/21/2019 [facility] 10 mg 09/12/2018 12:00:00 AM EDT tablet 30 TAKE ONE TABLET BY MOUTH EVERY DAY TAKE ONE TABLET BY MOUTH EVERY DAY SOLD: 07/22/2019 [facility] 10 mg 09/12/2018 12:00:00 AM EDT tablet 30 TAKE ONE TABLET BY MOUTH EVERY DAY TAKE ONE TABLET BY MOUTH EVERY DAY SOLD: 05/17/2019 [facility] Insurance Providers Payer name Policy type / Coverage type Policy ID Covered green party ID Covered green party's relationship to wyatt Policy Wyatt Plan Information [employer] [place]/307 [id number] SP [id number] SELF PAY ONLY [id number] SP [id number] [employer] [place] P[place] 302/307 [id number] SP [id number] [place]LL[place] BCBS B [id number] S [id number] [place] [id number] S [id number] [place] [place] 302/307 [id number] SP [id number] [place] [place] 302/307 [id number] SP [id number] BCBS/[employer] Commercial [id number] Self YN [id number] BCBS/Blue Card Commercial [id number] Self Z [id number] BCBS/Blue Card Commercial [id number] Self Z [id number] BCBS Ppo Commercial [id number] Self [id number] [facility] [id number] SP [id number] BCBS Ppo Commercial [id number] Self [id number] [employer] Health Maintenance Organization (HMO) [id number] Self [id number] MVP Commercial [id number] Self [id number] BCBS/Blue Card Commercial [id number] Self Z [id number] MVP Commercial [id number] Self [id number] BCBS/Blue Card Commercial [id number] Self Z [id number] [employer] [facility] O [id number] S [id number] [employer] [id number] SP [id number] MVP Commercial Self BCBS/Blue Card Commercial Self [place] Medigap Part B Family Dependent POMCO PPO O [id number] P [id number] POMCO [id number] Results ID Date Data Source [id number] 07/12/2020 10:15:00 AM EST [facility] Name Value Range Interpretation Code Description Data Bhakti rce(s) Supporting Document(s) SARS coronavirus 2 RNA Not Detected [facility] [place] This lab was ordered by [facility] and reported by [facility]. ID Date Data Source [id number] 05/08/2020 12:00:00 AM EST [facility] Name Value Range Interpretation Code Description Data Bhakti rce(s) Supporting Document(s) 2019-nCoV RNA XXX ELHAM+probe-Imp [facility] This lab was ordered by [facility] and reported by [facility]. Procedure Social History Code Duration Value Status Description Data Source(s ) Smoking 04/22/2020 12:00:00 AM EDT Patient has never smoked co mpleted Patient has never smoked [facility] ([facility]) Vital Signs ID Date Data Source UNK Name Value Range Interpretation Code Description Data Source(s) Body mass index (BMI) [Ratio] 30.6 kg/m2 30.6 k g/m2 [facility] ([facility]) Body height 75 [in_i] 75 [in_i] [facility] ([facility]) 6'3" Body weight 245.00 [lb_av] 245.00 [lb_av] MEDEN T ([facility]) Body temperature 98.3 [degF] 98.3 [degF] [facility] Oxygen saturation in Arterial blood by Pulse oximetry 99 % 99 % [facility]) Respiratory rate 16 /min 16 /min [facility] ( [facility]) Heart rate 91 /min 91 /min [facility]) Diastolic blood pressure 112 mm[Hg] 112 mm[Hg] [facility]) Systolic blood pressure 169 mm[Hg] 169 mm[Hg] [facility] ([facility], [facility]) Body mass index (BMI) [Ratio] 30.0 kg/m2 30.0 k g/m2 [facility] ([facility], [facility]) Body height 75 [in_i] 75 [in_i] [facility] ([facility], [facility]) 6'3" Body weight 240.00 [lb_av] 240.00 [lb_av] [facility] T ([facility], [facility]) Body temperature 98.0 [degF] 98.0 [degF] [facility], [facility]) Oxygen saturation in Arterial blood by Pulse oximetry 97 % 97 % [facility], [facility]) Respiratory rate 16 /min 16 /min [facility] ( [facility]) Heart rate 70 /min 70 /min [facility]) Diastolic blood pressure 119 mm[Hg] 119 mm[Hg] [facility] ([facility], [facility]) Systolic blood pressure 168 mm[Hg] 168 mm[Hg] [facility], [facility])
--- OUTSIDE RECORDS SUMMARY | 2020-07-17 06:20 | CCD | Continuity of Care Document ---
Author Author Lazaro MARTÍNEZ MT Organization Unknown Address [address] [place] [address] [place] [address] Phone [phone] Care Team Providers Care Retention Specialist Name Role Phone Estevan Jimenes MD [facility] [phone] No PCP [facility] Unavailable Problems Description No [...] 3 Yrs And Above For Intramuscular Use [id number] Vital Signs Date Vital Result Comment 04/22/2020 [...]
[2020-07-17] MEDS ORDERED: ROPIvacaine 0.5% 30ML INJECTION (J2795 PER 1MG) As Ordered ONE (07:16)
[2020-07-17] MEDS ORDERED: LIDOCAINE 2% MDV 20ML VIAL As Ordered ONE (07:16)
[2020-07-17] MEDS ORDERED: BUPIVACAINE HCL 0.5% 10ML VIAL As Ordered ONE ×2 (07:16→07:33)
[2020-07-17] MEDS ORDERED: BACITRACIN PWD 50,000 UNITS VIAL As Ordered ONE (07:17)
[2020-07-17] MEDS ORDERED: NEOSPORIN GU IRRIG 20 ML VIAL As Ordered ONE (07:17)
[2020-07-17] MEDS ORDERED: propofoL 200 MG/20 ML VIAL As Ordered ONE ×3 (07:18→09:25)
[2020-07-17] MEDS ORDERED: LIDOCAINE 2% 100MG/5ML SDV (FOR ANES.) As Ordered ONE (07:18)
[2020-07-17] MEDS ORDERED: fentaNYL 100 MCG/2 ML INJECTION (J3010) As Ordered ONE (07:19)
[2020-07-17] MEDS ORDERED: MIDAZOLAM INJ 2MG/2ML VIAL (J2250 PER 1MG) As Ordered ONE (07:19)
[2020-07-17] MEDS ORDERED: ceFAZolin 2 GM/D5W 50 ML IV BAG (J0690 PER 500MG) As Ordered ONE (07:23)
[2020-07-17] MEDS ORDERED: ceFAZolin SOD 2 GM in IV 1 EA IV ONE (07:45)
[2020-07-17] MEDS ORDERED: dexameTHASONE 4 MG/ML 1ML VIAL (J1100 PER 1MG) As Ordered ONE (08:07)
[2020-07-17] MEDS ORDERED: ONDANSETRON 4MG/2ML VIAL As Ordered ONE (08:07)
[2020-07-17] MEDS ORDERED: KETOROLAC 60MG 2ML VIAL As Ordered ONE (08:07)
[2020-07-17] MEDS: dexameTHASONE 4 MG/ML 1ML VIAL (J1100 PER 1MG) As Ordered ONE ×2 (08:15→10:04)
[2020-07-17] MEDS ORDERED: ePHEDrine SULFATE 25 MG/5 ML(5MG/ML) SYRINGE As Ordered ONE (08:22)
[2020-07-17 10:35] VITALS: BP 125/77
[2020-07-17] MEDS ORDERED: LR 1,000 ML IV SCH (10:45)
[2020-07-17] MEDS ORDERED: ONDANSETRON 4MG/2ML VIAL IV PRN (10:45)
[2020-07-17] MEDS ORDERED: HYDROMORPHONE HCL 0.5 MG/ 0.5 ML SYRINGE (J1170 PER 1) IV PRN (10:45)
[2020-07-17] MEDS ORDERED: oxyCODONE 5MG TAB PO PRN (10:45)
[2020-07-17] MEDS ORDERED: fentaNYL 100 MCG/2 ML INJECTION (J3010) IV PRN (10:45)
--- NOTE | 2020-07-17 14:45 | RO ---
OPERATIVE NOTE DATE OF OPERATION: 07/17/2020 PREOPERATIVE DIAGNOSIS: Hallus limitus deformity, right foot, neuroma, third intermetatarsal space, right foot. POSTOPERATIVE DIAGNOSIS: Hallus limitus deformity, right foot, neuroma, third intermetatarsal space, right foot. PROCEDURE: 1. Fusion, first metatarsophalangeal joint, right foot with Arthrex plate and screw fixation. 2. Excision of neuroma, third intermetatarsal space, right foot. SURGEON: Theo Mendez DPM PRICE ECONOMIST: None. ANESTHESIA: Local, MAC. IRRIGATION: Dilute bacitracin, neomycin and polymyxin B solution. HARDWARE UTILIZED: An Arthrex large MTP plate with locking and nonlocking screws. HEMOSTASIS: Ankle pneumatic tourniquet at 250 mmHg for 105 minutes, right foot. DESCRIPTION OF OPERATION: On 07/17/20, this 59-year-old white male was taken from his hospital room to the operating room and placed on the operating table in supine position. Following the induction of IV sedation and local and regional anesthesia, the right lower extremity was prepped and draped in the usual aseptic manner. Attention was directed to the patient's right foot where there was noted to be a positive Renny sign in the third intermetatarsal space and the following procedure was performed. Excision of neuroma, third intermetatarsal space, right foot. Attention was directed to the patient's dorsal aspect of the right foot where a 6 cm incision was placed over the third interspace. Dissection was carried down to the level of the deep transverse intermetatarsal ligament. All bleeders as encountered were electrocoagulated. The deep transverse intermetatarsal ligament was transected. Plantar pressure revealed a large neuroma. This was traced distally into its common digital branches and transected. It was then traced proximally into the mid-shaft region of the metatarsal, transected and removed. Any bleeders were electrocoagulated. The wound was flushed with copious amounts of bacitracin, neomycin and polymyxin B solution. The subcutaneous tissues were coapted and maintained utilizing 4-0 Monocryl in a simple interrupted type fashion. The skin incision was coapted and maintained with 4-0 Prolene in a simple interrupted fashion. Attention was then directed into the first intermetatarsal space where the following procedure was performed. Fusion, first metatarsophalangeal joint with plate and screw fixation, right foot. Attention was then directed to the patient's right foot and a 10 cm incision was placed over the first metatarsophalangeal joint. The incision was deepened through subcutaneous tissues and all crossing venous tributaries were identified, scored, clamped, cut, ligated or electrocoagulated as necessary. The extensor tendon was retracted in a lateral direction. A linear capsulotomy was performed in the same plane as the original skin incision. The capsular and periosteal structures were then dissected free in one continuous layer dorsally, medially and laterally, this creating a capsular periosteal type envelope. The hypertrophied medial eminence was osteotomized from distal to proximal [id number], exiting medial to the sesamoidal groove. 80% of the articular cartilage was noted to be eroded from the first metatarsal and approximately 60% of the cartilage on the proximal phalanx. Utilizing a [id number] 24 mm reamer, the metatarsal head and phalanx were reamed to promote fusion and then drilled with a 1.7 mm drill bit to encourage fusion. The wound was flushed with copious amounts of dilute bacitracin, neomycin and polymyxin B solution. A rongeur was utilized to mold the first metatarsophalangeal joint area. A size large Arthrex right-sided plate was utilized and contoured to the foot. It was then attached with the following screws. First a 3 mm screw was placed across the fusion site measuring approximately 38 mm. The plate was then attached with locking 20, 38 and 22 screws and nonlocking 18, 18, 20 and 24. Two screws were initially placed that were 26 mm and these were removed since they were slightly long. After the plate was attached, intraoperative C-arm images revealed good position of the hallux which allowed a small space between the first and second toe. The nail plate was parallel to the plantar surface of the foot and the hallux was approximately 5 mm elevated off the weightbearing surface. The wound was then lavaged with dilute neomycin and polymyxin B solution and the wound was coapted and maintained. The capsule was coapted with 2-0 Monocryl in a simple, interrupted type fashion. The subcutaneous tissues were coapted and maintained with 4-0 Monocryl in a simple, interrupted type fashion and the skin was coapted and maintained with 4-0 Prolene in a simple, interrupted type fashion. Dry sterile dressing was applied consisting of Adaptic, 4x4s, 4x4 splints, Kerlix and a well-molded fiberglass boot cast was applied to the patient's foot. The ankle pneumatic tourniquet was deflated during the procedure just prior to wound closure and any remaining bleeders were electrocoagulated. The patient apparently tolerated the surgical procedure well and was taken from the OR to the recovery room for further monitoring by the anesthesia department. Postoperative instructions were given upon discharge.
--- NOTE | 2020-07-17 17:06 | REP ---
INDICATION: HALLUX RIGIDUS AND NEUROMA RIGHT FOOT. COMPARISON: 06/14/2019. TECHNIQUE: Three views right foot. FINDINGS: Metallic plate and screws bridge the 1st metatarsophalangeal joint. There is severe narrowing of that joint. There is moderate spurring and subchondral sclerosis. Surgical hardware is seen in the posterior calcaneus. There is moderate inferior calcaneal spurring. There is no overlying cast. The osseous structures otherwise appear intact and well aligned. IMPRESSION: Postsurgical changes as above. <Electronically signed by Filiberto Bermeo > 07/17/20 [id number]
--- NOTE | 2020-07-19 17:31 | REP ---
INDICATION: CHILECTOMY RIGHT FOOT COMPARISON: None. TECHNIQUE: AP, lateral, oblique views of the right foot. FINDINGS: Postoperative changes and transarticular fixation at the 1st metatarsophalangeal joint with satisfactory alignment. Evidence for old fixation involving the calcaneus. Further evaluation is limited by overlying cast material. IMPRESSION: Postoperative changes. <Electronically signed by Steven Donald > 07/19/20 [id number]
== END 2020-07-17 12:06 | disposition home or self-care (01) ==
LOC: M SDC 06:15
PROVIDERS: ATTEND Podiatrist
DX: M20.21 Hallux rigidus, right foot (principal); G57.61 Lesion of plantar nerve, right lower limb; M79.671 Pain in right foot; M12.9 Arthropathy, unspecified; I10 Essential (primary) hypertension; Z79.899 Other long term (current) drug therapy
CPT/HCPCS: 28080; 28750; 73630; 76000; 88300; 88304; C1713; J0690; J1100; J1885; J2250; J2405; J3010

== ENCOUNTER → 2020-08-10 | Outpatient (REF) | payer BC ==
[~2020-08-10] MED LIST changes: -LR 1,000 ML IV ONE
[2020-08-10 17:51] LABS: BASO # 0.1 10^3/uL (0.0-0.2); BASO % 0.7 % (0.0-1.0); EOS # 0.2 10^3/uL (0.0-0.5); EOS % 2.7 % (0.0-3.0); HEMATOCRIT 48.4 % (42.0-52.0); HEMOGLOBIN 15.5 g/dl (13.5-17.5); LYMPH # 1.7 10^3/uL (1.5-5.0); LYMPH % 22.6 % (24.0-44.0); MEAN CORPUSCULAR HEMOGLOBIN 28.4 pg (27.0-33.0); MEAN CORPUSCULAR VOLUME 88.8 fl (80.0-96.0); MONO # 0.6 10^3/uL (0.0-0.8); MONO % 8.2 % (0.0-8.0); NEUTROPHILS # 4.9 10^3/uL (1.5-8.5); NEUTROPHILS % 65.3 % (36.0-66.0); PLATELET COUNT, AUTOMATED 314 10^3/uL (150-450); RED BLOOD COUNT 5.45 10^6/uL (4.30-6.10); WHITE BLOOD COUNT 7.4 10^3/uL (4.0-10.0)
[2020-08-10 17:56] LABS: ALBUMIN 4.1 GM/DL (3.2-5.2); ALT/SGPT 29 U/L (12-78); BILIRUBIN,TOTAL 0.6 MG/DL (0.2-1.0); BLOOD UREA NITROGEN 24 MG/DL (7-18); CALCIUM LEVEL 10.2 MG/DL (8.8-10.2); CARBON DIOXIDE LEVEL 30 MEQ/L (21-32); CHLORIDE LEVEL 104 MEQ/L (98-107); CHOLESTEROL LEVEL 177 MG/DL (<200); CREATININE FOR GFR 1.02 MG/DL (0.70-1.30); GLOMERULAR FILTRATION RATE > 60.0 (>49); GLUCOSE, FASTING 89 MG/DL (70-100); HDL CHOLESTEROL 51 MG/DL (>40); LDL CHOLESTEROL 112 MG/DL (<100); NON-HDL-C 126 MG/DL; POTASSIUM SERUM 4.6 MEQ/L (3.5-5.1); SODIUM LEVEL 140 MEQ/L (136-145); TOTAL 25(OH) VITAMIN D 34.8 NG/ML (30.0-100.0); TRIGLYCERIDES LEVEL 70 MG/DL (<150)
== END ==
LOC: M LAB REF 16:12
PROVIDERS: ATTEND Pediatrics
DX: I10 Essential (primary) hypertension (principal)

== ENCOUNTER → 2022-03-30 | Outpatient (REF) | payer BC | LOC: M SFHCDERM 14:09 | PROVIDERS: ATTEND Dermatology | DX: C44.612 Basal cell carcinoma of skin of right upper limb, including shoulder (principal) ==

== ENCOUNTER → 2022-05-04 | Outpatient (CLI) | payer BC ==
[~2022-05-04] MED LIST changes: +AMLO1TAB24 PO; +ATOR1TAB19 PO; +FLUC150T9 PO
== END ==
LOC: M LABSMTC 11:44
PROVIDERS: ATTEND Anesthesiology
DX: Z01.812 Encounter for preprocedural laboratory examination (principal); Z11.52 Encounter for screening for COVID-19

== ENCOUNTER → 2022-05-04 | Outpatient (REF) | payer BC ==
[2022-05-04 18:12] LABS: BASO # 0.1 10^3/uL (0.0-0.2); BASO % 1.2 % (0.0-1.0); EOS # 0.3 10^3/uL (0.0-0.5); EOS % 3.8 % (0.0-3.0); HEMATOCRIT 45.9 % (42.0-52.0); HEMOGLOBIN 15.3 g/dl (13.5-17.5); LYMPH # 2.3 10^3/uL (1.5-5.0); LYMPH % 26.6 % (24.0-44.0); MEAN CORPUSCULAR HGB CONC 33.3 g/dl (32.0-36.5); MEAN CORPUSCULAR VOLUME 86.9 fl (80.0-96.0); MONO # 0.7 10^3/uL (0.0-0.8); MONO % 8.7 % (2.0-8.0); NEUTROPHILS % 59.5 % (36.0-66.0); PLATELET COUNT, AUTOMATED 270 10^3/uL (150-450); RED BLOOD COUNT 5.28 10^6/uL (4.30-6.10); WHITE BLOOD COUNT 8.5 10^3/uL (4.0-10.0)
[2022-05-04 18:54] LABS: BLOOD UREA NITROGEN 18 MG/DL (7-18); CALCIUM LEVEL 9.9 MG/DL (8.8-10.2); CARBON DIOXIDE LEVEL 28 MEQ/L (21-32); CHLORIDE LEVEL 105 MEQ/L (98-107); CHOLESTEROL LEVEL 126 MG/DL (<200); CREATININE FOR GFR 1.01 MG/DL (0.70-1.30); GLOMERULAR FILTRATION RATE > 60.0 (>49); GLUCOSE, FASTING 96 MG/DL (70-100); HDL CHOLESTEROL 51 MG/DL (>40); LDL CHOLESTEROL 58 MG/DL (<100); NON-HDL-C 75 MG/DL; POTASSIUM SERUM 4.3 MEQ/L (3.5-5.1); SODIUM LEVEL 138 MEQ/L (136-145); TRIGLYCERIDES LEVEL 83 MG/DL (<150)
== END ==
LOC: M LAB REF 17:11
PROVIDERS: ATTEND Pediatrics
DX: E78.5 Hyperlipidemia, unspecified (principal); I10 Essential (primary) hypertension; G47.33 Obstructive sleep apnea (adult) (pediatric)

== ENCOUNTER 2022-05-09 07:36 | Day surgery (SDC) | payer BC ==
[~2022-05-09] VITALS: Ht 190.5 cm; Wt 114.8 kg
[~2022-05-09 07:36] MED LIST changes: +CelecoXIB 400 MG CAP PO ONE; +ceFAZolin SOD 2 GM in IV 1 EA IV ONE
[2022-05-09] MEDS ORDERED: BUPIVACAINE HCL 0.25% 30ML VIAL As Ordered ONE (08:50)
[2022-05-09] MEDS ORDERED: LIDOCAINE 1% SDV 30ML VIAL As Ordered ONE (08:50)
[2022-05-09] MEDS ORDERED: fentaNYL 100 MCG/2 ML INJECTION As Ordered ONE (09:12)
[2022-05-09] MEDS ORDERED: MIDAZOLAM INJ 2MG/2ML VIAL (J2250 PER 1MG) As Ordered ONE (09:12)
[2022-05-09] MEDS ORDERED: propofoL 200 MG/20 ML VIAL As Ordered ONE ×2 (09:12→09:21)
[2022-05-09 11:25] VITALS: BP 157/93
== END 2022-05-09 11:36 | disposition home or self-care (01) ==
LOC: M SDC 07:36
PROVIDERS: ATTEND Surgery
DX: D17.1 Benign lipomatous neoplasm of skin and subcutaneous tissue of trunk (principal); Z85.828 Personal history of other malignant neoplasm of skin
CPT/HCPCS: 21933; 88304; J0690; J2250; J3010

== ENCOUNTER 2022-07-15 19:47 | Emergency (ER) | payer BC ==
[~2022-07-15] VITALS: Ht 190.5 cm; Wt 117.9 kg
[~2022-07-15 19:47] MED LIST changes: -CelecoXIB 400 MG CAP PO ONE; -ceFAZolin SOD 2 GM in IV 1 EA IV ONE
[2022-07-15 19:50] VITALS: BP 200/100
[2022-07-15] MEDS ORDERED: FLUORESCEIN OPHTH 1MG STRIP OS ONE (20:55)
[2022-07-15] MEDS ORDERED: PROPARACAINE 0.5% OPHTH SOL 15ML OS ONE (20:55)
[2022-07-15] MEDS ORDERED: CIPROFLOXACIN 0.3% OPHTH SOLN 2.5ML OS ONE (21:40)
[2022-07-15] MEDS ORDERED: ACETAMINOPHEN 325 MG TAB PO ONE (21:45)
[2022-07-15] MEDS ORDERED: CIPR0.3S6 OS (21:48)
== END 2022-07-15 22:05 | disposition home or self-care (01) ==
LOC: M ED 19:47
DX: S05.02XA Injury of conjunctiva and corneal abrasion without foreign body, left eye, initial encounter (principal); X58.XXXA Exposure to other specified factors, initial encounter; I10 Essential (primary) hypertension; G47.33 Obstructive sleep apnea (adult) (pediatric); Z79.899 Other long term (current) drug therapy; Z98.890 Other specified postprocedural states

== ENCOUNTER 2023-09-17 13:55 | Emergency (ER) | payer BC ==
[~2023-09-17] VITALS: Ht 190.5 cm; Wt 100.1 kg
[~2023-09-17 13:55] MED LIST changes: +CIPR0.3S37 OS
[2023-09-17 13:56] VITALS: TEMP 97.1
[2023-09-17 14:24] LABS: VENOUS BASE EXCESS -3.9 (-2.0-2.0); VENOUS HCO3 21.1 MMOL/L (23.0-27.0); VENOUS O2 SATURATION 74.7 % (60.0-80.0); VENOUS PARTIAL PRESSURE CO2 38.4 mmHg (38.0-50.0); VENOUS PARTIAL PRESSURE O2 37.8 mmHg (30.0-50.0); VENOUS PH 7.357 UNITS (7.330-7.430); VENOUS STANDARD HCO3 20.7 MMOL/L; VENOUS TOTAL CO2 22.2 MMOL/L (24.0-28.0)
[2023-09-17] MEDS: NS 1,000 ML IV ONE ×4 (14:33→16:35)
[2023-09-17 14:47] LABS: HEMATOCRIT 50.3 % (42.0-52.0); HEMOGLOBIN 17.2 g/dl (13.5-17.5); MEAN CORPUSCULAR HEMOGLOBIN 29.5 pg (27.0-33.0); MEAN CORPUSCULAR HGB CONC 34.2 g/dl (32.0-36.5); MEAN CORPUSCULAR VOLUME 86.1 fl (80.0-96.0); PLATELET COUNT, AUTOMATED 259 10^3/uL (150-450); RED BLOOD COUNT 5.84 10^6/uL (4.30-6.10); WHITE BLOOD COUNT 10.7 10^3/uL (4.0-10.0)
[2023-09-17 15:04] LABS: HEMOGLOBIN A1c > 14.0 % (4.0-6.0)
[2023-09-17] MEDS ORDERED: BLOOTES VI (15:12)
[2023-09-17] MEDS ORDERED: CARE1KIT XX (15:12)
[2023-09-17 15:18] LABS: BILIRUBIN,DIRECT 0.3 MG/DL (<0.4); BILIRUBIN,TOTAL 0.9 MG/DL (0.3-1.2); CALCIUM LEVEL 10.5 MG/DL (8.3-10.6); CREATININE FOR GFR 1.4 MG/DL (0.70-1.30); GLOMERULAR FILTRATION RATE 54.3 (>49); TOTAL PROTEIN 7.1 G/DL (5.7-8.2)
[2023-09-17] MEDS: HumuLIN R (REGULAR) INSULIN (NovoLIN R) **100U/ML** PER UNIT IV ONE (18:02)
[2023-09-17] MEDS ORDERED: METF500T13 PO (18:04)
[2023-09-17 21:00] VITALS: BP 109/66; O2SAT 95
== END 2023-09-17 21:51 | disposition home or self-care (01) ==
LOC: M ED 13:55
DX: E11.9 Type 2 diabetes mellitus without complications (principal); N18.9 Chronic kidney disease, unspecified; E78.5 Hyperlipidemia, unspecified; I10 Essential (primary) hypertension; I77.810 Thoracic aortic ectasia; Z79.4 Long term (current) use of insulin; Z79.02 Long term (current) use of antithrombotics/antiplatelets; Z79.899 Other long term (current) drug therapy
CPT/HCPCS: 80047; 80048; 80076; 82803; 83036; 85027; 96361; 96374; 99285; J1815

== ENCOUNTER → 2023-09-25 | Outpatient (REF) | payer BC ==
[~2023-09-25] MED LIST changes: +BLOOTES VI; +CARE1KIT XX; +METF500T13 PO
[2023-09-25 17:23] LABS: MALB URINE SIEMENS < 3.0 MG/L; MAU/CREAT RATIO 6.5 MCG/MG (0.0-30.0)
== END ==
LOC: M LAB REF 16:17
PROVIDERS: ATTEND Family Medicine Addiction Medicine
DX: E11.9 Type 2 diabetes mellitus without complications (principal)

== ENCOUNTER 2023-10-04 18:26 | Emergency (ER) | payer BC ==
[~2023-10-04] VITALS: Ht 190.5 cm; Wt 103.7 kg
[2023-10-04 19:32] LABS: VENOUS BASE EXCESS -1.9 (-2.0-2.0); VENOUS HCO3 23.2 MMOL/L (23.0-27.0); VENOUS O2 SATURATION 73.1 % (60.0-80.0); VENOUS PARTIAL PRESSURE CO2 41.1 mmHg (38.0-50.0); VENOUS PARTIAL PRESSURE O2 36.4 mmHg (30.0-50.0); VENOUS STANDARD HCO3 22.3 MMOL/L; VENOUS TOTAL CO2 24.5 MMOL/L (24.0-28.0)
[2023-10-04 19:43] LABS: BASO # 0.1 10^3/uL (0.0-0.2); EOS # 0.2 10^3/uL (0.0-0.5); HEMATOCRIT 40.4 % (42.0-52.0); LYMPH # 1.6 10^3/uL (1.5-5.0); LYMPH % 26.9 % (24.0-44.0); MEAN CORPUSCULAR HEMOGLOBIN 29.4 pg (27.0-33.0); MEAN CORPUSCULAR HGB CONC 34.7 g/dl (32.0-36.5); MEAN CORPUSCULAR VOLUME 84.9 fl (80.0-96.0); MONO # 0.6 10^3/uL (0.0-0.8); MONO % 10.6 % (2.0-8.0); NEUTROPHILS # 3.5 10^3/uL (1.5-8.5); NEUTROPHILS % 58.3 % (36.0-66.0); PLATELET COUNT, AUTOMATED 238 10^3/uL (150-450); RED BLOOD COUNT 4.76 10^6/uL (4.30-6.10); WHITE BLOOD COUNT 6.1 10^3/uL (4.0-10.0)
[2023-10-04 20:02] LABS: ACETONE/KETONE 0.16 MMOL/L (0.02-0.27)
[2023-10-04 20:20] LABS: BLOOD UREA NITROGEN 22 MG/DL (9-23); CALCIUM LEVEL 9.4 MG/DL (8.3-10.6); CARBON DIOXIDE LEVEL 27 MMOL/L (20-31); CHLORIDE LEVEL 101 MMOL/L (98-107); CREATININE FOR GFR 1.01 MG/DL (0.70-1.30); GLOMERULAR FILTRATION RATE > 60.0 (>49); GLUCOSE, FASTING 406 MG/DL (74-106); MAGNESIUM LEVEL 1.5 MG/DL (1.8-2.4); POTASSIUM SERUM 4.7 MMOL/L (3.5-5.1); SODIUM LEVEL 134 MMOL/L (136-145)
[2023-10-04] MEDS: MAG SULF 1GM/100ML (MAG RUN) 1 GM in IV 1 EA IV ONE ×2 (20:32→22:43)
[2023-10-04] MEDS: INSULIN LISPRO (NovoLOG) PER UNIT SC ONE (20:36)
[2023-10-04] MEDS ORDERED: TRUL10IN (22:07)
[2023-10-04] MEDS ORDERED: LANTINJ4 SC (23:50)
[2023-10-04] MEDS ORDERED: [UNRECOGNIZED DRUG - SUPPLY] XX (23:50)
[2023-10-04] MEDS ORDERED: SLOWTAB2 PO (23:50)
[2023-10-04] MEDS: LEVEMIR (INSULIN DETEMIR) 1 UNITS/0.01ML SC ONE (23:51)
[2023-10-04 23:56] VITALS: BP 132/87; TEMP 98.4; O2SAT 97
== END 2023-10-05 00:07 | disposition home or self-care (01) ==
LOC: M ED 18:26
DX: E11.65 Type 2 diabetes mellitus with hyperglycemia (principal); E83.42 Hypomagnesemia; I45.9 Conduction disorder, unspecified; I10 Essential (primary) hypertension; F10.10 Alcohol abuse, uncomplicated; Z79.02 Long term (current) use of antithrombotics/antiplatelets; Z79.4 Long term (current) use of insulin; Z79.811 Long term (current) use of aromatase inhibitors; Z79.899 Other long term (current) drug therapy
CPT/HCPCS: 80048; 82010; 82803; 83735; 85025; 93005; 93041; 96365; 96366; 96372; 99285; J1815; J3475

== ENCOUNTER → 2023-10-06 | Outpatient (REF) | payer BC ==
[~2023-10-06] MED LIST changes: +LANTINJ4 SC; +SLOWTAB2 PO; +TRUL10IN; +[UNRECOGNIZED DRUG - SUPPLY] XX
== END ==
LOC: M LAB REF 17:30
PROVIDERS: ATTEND Pediatrics
DX: E13.65 Other specified diabetes mellitus with hyperglycemia (principal)

== ENCOUNTER → 2024-10-08 | Outpatient (REF) | payer BC, OTHER ==
[2024-10-08 19:11] LABS: ALBUMIN 4.3 G/DL (3.2-5.2); BILIRUBIN,TOTAL 0.4 MG/DL (0.3-1.2); CHOLESTEROL RISK RATIO 2.54 (<5); CREATININE FOR GFR 1.01 MG/DL (0.70-1.30); GLOMERULAR FILTRATION RATE 82.5 (>49); HDL CHOLESTEROL 50.6 MG/DL (>40); LDL CHOLESTEROL 64.2 MG/DL (<100); NON-HDL-C 78.4 MG/DL; POTASSIUM SERUM 4.5 MMOL/L (3.5-5.1); PSA SCREENING 12.85 NG/ML (< 4.00); TOTAL PROTEIN 7.3 G/DL (5.7-8.2)
[2024-10-08 19:12] LABS: THYROID STIMULATING HORMONE 1.308 uIU/ML (0.55-4.78)
== END ==
LOC: M LAB REF 17:53
PROVIDERS: ATTEND Pediatrics
DX: E13.9 Other specified diabetes mellitus without complications (principal); Z12.5 Encounter for screening for malignant neoplasm of prostate

== ENCOUNTER → 2025-01-23 | Outpatient (REF) | payer BC, MEDICARE ==
[~2025-01-23] MED LIST changes: +SLOW1TAB3 PO; -SLOWTAB2 PO
== END ==
LOC: M SFHCDERM 12:46
PROVIDERS: ATTEND Nurse Practitioner Family
DX: C44.729 Squamous cell carcinoma of skin of left lower limb, including hip (principal)